=== PATIENT | female | born 1965 | race Caucasian/White ===

== ENCOUNTER 2024-05-15 19:58 | Emergency (ER) | payer OTHER, SELFPAY ==
[2024-05-15 20:07] VITALS: BP 127/77; PULSE 100; RESP 16; TEMP 37; O2SAT 96; BMI 24.2
--- NOTE | 2024-05-15 22:58 | ED_ITS ---
HPI - Skin/Abscess/Foreign Bdy General Chief complaint: Skin/Abscess/Foreign Body Stated complaint: poss spider bite Time Seen by Provider: 05/15/24 22:57 Source: patient, RN notes reviewed and old records reviewed Mode of arrival: Ambulatory Limitations: no limitations History of Present Illness HPI narrative: 59-year-old female history of psoriasis, patient presents with concern for spider bite today she states that she was camping on [facility] felt something bite her on the ankle developed red Pap patchy spots on her ankle which have progressed throughout the day. Patient states the night that she was bitten she felt feverish she threw up several times that has all abated. She has not had any persistent fevers no chest pain or shortness of breath no persistent nausea or vomiting. No other GI symptoms. States the redness started localized has spread but is sort of papules. She states it was very very warm particularly earlier today. Is not itchy has a little bit of painful. No drainage. Patient states she does have a history of psoriasis but stasis looks very different. She denies any drug allergies. She has not currently on any prescription medications. She does request a refill of her betamethasone 0.1% for her psoriasis she is traveling and run out. Former smoker, uses marijuana, no IV drugs reported. Related Data Previous Rx's Medication Instructions Recorded betamethasone valerate 0.1 % 1 applic topical DAILY PRN 05/15/24 topical cream Psoriasis #15 grams cephalexin 500 mg capsule 500 mg PO Q6H 7 days #28 caps 05/15/24 Allergies Allergy/AdvReac Type Severity Reaction Status Date / Time No Known Drug Allergies Allergy Verified 05/15/24 20:07 Review of Systems Review of Systems ROS Unobtainable: All systems reviewed & are unremarkable except as noted in HPI and below Patient History Social History Smoking Status: Former smoker Smoking Status: Former smoker Substance Use Type: marijuana Exam Narrative Exam Narrative: GENERAL: Alert and oriented x three, mild distress. HEENT: Head normocephalic, atraumatic, EOMI, pupils reactive, face symmetric, moist mucous membranes NECK: Supple, full range of motion CARDIOVASCULAR: Regular rate and rhythm without murmurs, rubs or gallops. RESPIRATORY: Breath sounds equal bilaterally, no wheezes rales or rhonchi. ABDOMEN: Soft, nontender. Normoactive bowel sounds all 4 quadrants. No guarding or rebound, rigidity, no mass EXTREMITIES: Normal range of motion, no clubbing. Neurovascularly intact. Patient has some mild edema and erythema with PAC she erythematous papules that ray spreading over an area of about 4.5 cm that is irregular, areas slightly warm to touch there is no abscess or fluid collection appreciated. NEUROLOGICAL: Cranial nerves II through XII grossly intact. Moving all extremities SKIN: Warm, dry, no petechiae, no other lesions, patient does have changes to the dorsum of her foot and hands on the palmar side with silver hyperkeratotic skin changes Initial Vital Signs Initial Vital Signs: Vital Signs Temperature 98.6 F 05/15/24 20:07 Pulse Rate 100 H 05/15/24 20:07 Respiratory Rate 16 05/15/24 20:07 Blood Pressure 127/77 05/15/24 20:07 Pulse Oximetry 96 05/15/24 20:07 Oxygen Delivery Method Room Air 05/15/24 20:07 Course Orders Ordered: Discontinued Medications Cephalexin HCl (Cephalexin 250 Mg Capsule) 500 mg PO NOW ONE Stop: 05/15/24 23:19 Last Admin: 05/15/24 23:27 Dose: 500 mg Documented By: WILLY Vital Signs Vital signs: Vital Signs - 8 hr 05/15/24 23:38 Temperature 97.9 F Pulse Rate 78 Respiratory Rate 18 Blood Pressure 144/71 H Pulse Oximetry 99 Oxygen Delivery Method Room Air MDM - Skin/Abscess/Foreign Bdy MDM Narrative Medical decision making narrative: 59-year-old female with appears to be rash possibly cellulitic it is little bit more patchy but is very warm to the touch, patient believes she may have been bitten by something. Has progressed over the last day so we will treat with oral antibiotic discussed return precautions. She is overall well-appearing here. She did request refill of her steroid cream and this was provided as well. Discharge Plan Departure Patient Disposition: Home Clinical Impression: Cellulitis of left lower extremity Instructions: DI for Cellulitis -- Adult Activity Restrictions/Additional Instructions: Take oral antibiotics until completed. Take about 24-48 hours for antibiotics to be fully effective. If you are not having any improvement of the next 72 hours you should have re-evaluation. Prescription was sent to [facility] in [place]. Prescription for your topical steroid cream for your psoriasis was also included. Please return for fevers, rapidly worsening redness, swelling, persistent vomiting, lightheadedness or passing out or other new or concerning changes. Prescriptions: New cephalexin 500 mg capsule 500 mg PO Q6H 7 Days Qty: 28 0RF betamethasone valerate 0.1 % cream 1 applic topical DAILY PRN (Reason: Psoriasis) Qty: 15 0RF Stand Alone Forms: Patient Portal/API
[2024-05-15] MEDS: cephALEXin 250 MG CAPSULE 500 MG PO (23:27)
[2024-05-15 23:38] VITALS: BP 144/71; PULSE 78; RESP 18; TEMP 36.6; O2SAT 99
== END 2024-05-15 23:35 | disposition home or self-care (01) ==
PROVIDERS: Emergency Provider Emergency Medicine
DX: L03.116 Cellulitis of left lower limb
CPT/HCPCS: 99283

== ENCOUNTER 2024-05-16 18:28 | Emergency (ER) | payer OTHER, SELFPAY ==
[2024-05-16 18:39] VITALS: BP 147/67; PULSE 91; RESP 16; TEMP 36.5; O2SAT 98; BMI 24.2
--- NOTE | 2024-05-16 18:52 | EKG_ITS ---
[facility] [address], [place] [address] Test Date: 2024-05-16 Pat Name: Bere Robins Department: [facility] Room: Gender: Female Telephone Repairer: : 1965 Requested By: Order Number: [id number] Reading MD: Felipe Dietz MD Measurements Intervals [place] Rate: 75 P: 64 NH: 132 QRS: -24 QRSD: 88 T: 17 QT: 374 QTc: 417 Interpretive Statements Normal sinus rhythm Electronically Signed On 05-17-2024 7:38:43 PDT by Felipe Dietz MD
[2024-05-16 19:30] VITALS: BP 132/82; PULSE 77; RESP 16; O2SAT 99
[2024-05-16] MEDS: SODIUM CHLORIDE 0.9% 1,000 ML 1000 ML IV (19:33)
[2024-05-16] MEDS: ONDANSETRON 4 MG/2 ML INJ IV ×2 (19:34→22:20)
[2024-05-16 19:38] LABS: Add Manual Diff / Slide Review NO; Basophils Absolute Auto 0 /uL (0-100); Basophils Percent Auto 0.2 % (0-2); Eosinophils Absolute Auto 0 /uL (0-450); Hematocrit 39.7 % (36-46); Hemoglobin 13.1 g/dL (12.0-16.0); Lymphocytes Absolute Auto 1000 /uL (1100-4500); Lymphocytes Percent Auto 6.1 % (25-40); Mean Corpuscular HGB Conc 32.9 % (30-36); Mean Corpuscular Hemoglobin 30.3 PG (26-34); Mean Corpuscular Volume 92.2 fL (80-100); Monocytes Absolute Auto 1100 /uL (0-900); Monocytes Percent Auto 6.7 % (3-14); Neutrophils Absolute Auto 14200 /uL (1500-7000); Platelet Count 311 X10^3/uL (150-400); Red Blood Cell Count 4.31 X10^6/uL (4.0-5.2); Red Cell Distribution Width 14.1 % (11.6-14.8); White Blood Cell Count 16.3 X10^3/uL (4.5-11.0)
[2024-05-16 19:50] LABS: Alanine Aminotransferase 17 IU/L (<35); Albumin Globulin Ratio 1.3 (1.0-2.8); Alkaline Phosphatase 67 U/L (38-126); Aspartate Aminotransferase 24 IU/L (14-36); BUN Creatinine Ratio 29.8 (6-22); Bilirubin Total 0.5 mg/dL (0.2-1.3); Blood Urea Nitrogen 14 mg/dL (7-17); Calcium 9.4 mg/dL (8.4-10.2); Carbon Dioxide 25 mmol/L (22-32); Chloride 108 mmol/L (98-107); Estimated Glomerular Filt Rate > 60 mL/min (>60); Globulin 3.2 g/dL (1.7-4.1); Glucose 118 mg/dL (80-110); HEMOLYSIS < 15 (0-50); Lipase 73 U/L (23-300); Potassium 3.9 mmol/L (3.4-5.1); Sodium 139 mmol/L (137-145); Total Protein 7.2 g/dL (6.3-8.2)
--- NOTE | 2024-05-16 20:51 | ED.NAVMDI ---
HPI - Nausea/Vomiting/Diarrhea General Chief complaint: Nausea/Vomiting/Diarrhea Stated complaint: vomiting, unable to keep anything down Time Seen by Provider: 05/16/24 20:30 Source: patient, RN notes reviewed and old records reviewed Mode of arrival: Ambulatory Limitations: no limitations History of Present Illness HPI Narrative: 59-year-old female with a history of psoriasis, was here last night with concern for spider bite and rash on her ankle she did note she had nausea and vomiting the day prior but no persistent symptoms and was started on oral antibiotic. Patient re-presented with complaint of nausea and vomiting since 5:00 a.m. this morning. Patient states she did have episodes of vomiting the day prior to being seen on the . Patient states no fevers but she has had chills. She states she has had persistent nausea and vomiting today. She denies any chest pain or shortness of breath. She states she had sounds like a syncopal episode where she sat up in bed after having been lying flat all day and passed out briefly. She denies any headache, she denies any back or flank pain. She states no abdominal pain but does have some tenderness on exam. No diarrhea but did have a bowel movement today which she states she has been constipated recently. Denies any dysuria urgency or frequency. Rash on her leg has progressed slightly. She has not been able to take any additional doses of antibiotics. No new rashes or skin changes that she appreciates. She has had some Pepto today. Patient is not on any oral medications regularly did get a prescription for betamethasone yesterday which she has used for her psoriasis. She states she has had prior hysterectomy denies any other abdominal surgeries. No known drug allergies. Related Data Previous Rx's Medication Instructions Recorded betamethasone valerate 0.1 % 1 applic topical DAILY PRN 05/15/24 topical cream Psoriasis #15 grams cephalexin 500 mg capsule 500 mg PO Q6H 7 days #28 caps 05/15/24 ondansetron 4 mg disintegrating 4 mg PO Q6H PRN nausea and 05/17/24 tablet vomiting #5 tabs Allergies Allergy/AdvReac Type Severity Reaction Status Date / Time No Known Drug Allergies Allergy Verified 05/15/24 20:07 Review of Systems Review of Systems ROS Unobtainable: All systems reviewed & are unremarkable except as noted in HPI and below Patient History Social History Smoking Status: Former smoker Smoking Status: Former smoker alcohol intake frequency: other Alcohol type: other Substance Use Type: marijuana Exam Narrative Exam Narrative: GEN: well nourished, female, alert and oriented x 3, patient appears to be in mild distress. HEENT: Atraumatic, pupils are equal round reactive to light, extraocular movements are intact, nares are clear, there is no conjunctival pallor. Throat is clear without any exudates, erythema, tonsillar enlargement or uvular deviation, patient has dry mucous membranes HEART: Regular rate and rhythm without murmur, clicks, rubs. pulses are equal in upper and lower extremities LUNGS:Lungs clear to auscultation, no wheezes, rales, crackles, chest moves symmetrically ABD:bowel sounds normal, soft, patient has some mild left-sided abdominal tenderness. More upper than lower., no guarding, rebound, rigidity, no masses noted, no hepatosplenomegaly :No CVA tenderness MSCL: Non-tender, no muscle atrophy, muscles strength 5/5 upper and lower extremities, full range of motion, normal gait NEURO:CN 2-12 intact, sensation normal SKIN: Warm, dry, no petechia no other lesions does have changes with the dorsum of the foot and hands consistent with silver hyperkeratotic skin changes on the palmar side of the hand. Patient's ankle has some mild erythema and edema with erythematous papules no vesicles overnight about 4.5 cm in comparison to last night possibly 5 cm that is irregular slightly warm to touch no abscess or fluid collection. Initial Vital Signs Initial Vital Signs: Vital Signs Temperature 97.7 F 05/16/24 18:39 Pulse Rate 91 H 05/16/24 18:39 Respiratory Rate 16 05/16/24 18:39 Blood Pressure 147/67 H 05/16/24 18:39 Pulse Oximetry 98 05/16/24 18:39 Oxygen Delivery Method Room Air 05/16/24 18:39 Course Orders Ordered: ED Orders 05/16/24 19:25 Complete Blood Count AUTO DIFF Stat Comprehensive Metabolic Panel Stat Lipase Stat Procalcitonin Stat Troponin & CK Cardiac Panel Stat 05/16/24 21:12 CT abdomen pelvis w con Stat 05/16/24 21:17 Urinalysis and Microscopic Stat 05/16/24 21:40 Blood Culture Stat 05/16/24 21:42 Lactate (Lactic Acid) Stat Discontinued Medications Sodium Chloride (Normal Saline 0.9%) 1,000 mls @ 1,000 mls/hr IV BOLUS ONE Stop: 05/16/24 19:52 Last Infusion: 05/16/24 20:33 Dose: Infused Documented By: Admin: 05/16/24 19:33 Dose: 1,000 mls/hr Documented By: QUEENIE Lactated Ringer's (Lactated Ringers) 1,000 mls @ 1,000 mls/hr IV BOLUS ONE Stop: 05/16/24 22:11 Last Infusion: 05/16/24 22:39 Dose: Infused Documented By: Admin: 05/16/24 21:39 Dose: 1,000 mls/hr Documented By: QUEENIE Acetaminophen (Ofirmev) 1,000 mg in 100 mls @ 400 mls/hr IV NOW ONE Stop: 05/16/24 21:26 Last Infusion: 05/16/24 21:54 Dose: Infused Documented By: Admin: 05/16/24 21:39 Dose: 400 mls/hr Documented By: QUEENIE Clindamycin Phosphate (Cleocin) 900 mg in 50 mls @ 50 mls/hr IV NOW ONE Stop: 05/16/24 23:03 Last Infusion: 05/16/24 23:20 Dose: Infused Documented By: Admin: 05/16/24 22:20 Dose: 50 mls/hr Documented By: QUEENIE Ondansetron HCl (Ondansetron 4 Mg/2 Ml Inj) 4 mg IV NOW PRN PRN Reason: Nausea And Vomiting Last Admin: 05/16/24 19:34 Dose: 4 mg Documented By: QUEENIE Ondansetron HCl (Ondansetron 4 Mg Odt) 4 mg PO NOW PRN PRN Reason: Nausea And Vomiting Last Admin: 05/17/24 02:09 Dose: 4 mg Documented By: QUEENIE Ondansetron HCl (Ondansetron 4 Mg/2 Ml Inj) 4 mg IV NOW ONE Stop: 05/16/24 22:08 Last Admin: 05/16/24 22:20 Dose: 4 mg Documented By: QUEENIE Ondansetron HCl (Ondansetron 4 Mg Odt Prepack) 1 bottle MISC DIRECTED ONE Stop: 05/17/24 01:53 Last Admin: 05/17/24 02:05 Dose: Not Given Documented By: QUEENIE Vital Signs Vital signs: Vital Signs - 8 hr 05/16/24 21:00 05/16/24 22:15 05/16/24 22:30 Pulse Rate 84 81 77 Respiratory Rate 16 16 16 Blood Pressure 166/56 H 132/58 L 129/60 Pulse Oximetry 95 97 98 Oxygen Delivery Method Room Air Room Air Room Air 05/17/24 00:00 05/17/24 00:30 05/17/24 01:00 Pulse Rate 78 81 78 Respiratory Rate 18 16 24 Blood Pressure 114/56 L 139/70 135/60 Pulse Oximetry 96 99 97 Oxygen Delivery Method Room Air Room Air Room Air 05/17/24 01:45 Pulse Rate 74 Respiratory Rate 16 Blood Pressure 137/64 Pulse Oximetry 97 Oxygen Delivery Method Room Air MDM - Nausea/Vomiting/Diarrhea Lab Data 05/16/24 19:25 05/16/24 19:25 Labs: Lab Results 05/16/24 05/16/24 05/16/24 Range/Units 19:25 21:17 21:42 WBC 16.3 H (4.5-11.0) X10^3/uL RBC 4.31 (4.0-5.2) X10^6/uL Hgb 13.1 (12.0-16.0) g/dL Hct 39.7 (36-46) % MCV 92.2 (80-100) fL MCH 30.3 (26-34) PG MCHC 32.9 (30-36) % RDW 14.1 (11.6-14.8) % Plt Count 311 (150-400) X10^3/uL Neut % (Auto) 87.0 H (50-75) % Lymph % (Auto) 6.1 L (25-40) % Ramsey % (Auto) 6.7 (3-14) % Eos % (Auto) 0.0 L (2-4) % Baso % (Auto) 0.2 (0-2) % Neut # (Auto) 34516 H (2153-6094) /uL Lymph # (Auto) 1000 L (1008-7555) /uL Ramsey # (Auto) 1100 H (0-900) /uL Eos # (Auto) 0 (0-450) /uL Baso # (Auto) 0 (0-100) /uL Sodium 139 (137-145) mmol/L Potassium 3.9 (3.4-5.1) mmol/L Chloride 108 H (98-107) mmol/L Carbon Dioxide 25 (22-32) mmol/L BUN 14 (7-17) mg/dL Creatinine 0.47 L (0.52-1.04) mg/dL Estimated GFR > 60 (>60) mL/min BUN/Creatinine Ratio 29.8 H (6-22) Glucose 118 H (80-110) mg/dL Lactate 1.1 (0.7-2.1) mmol/L Calcium 9.4 (8.4-10.2) mg/dL Total Bilirubin 0.5 (0.2-1.3) mg/dL AST 24 (14-36) IU/L ALT 17 (<35) IU/L Alkaline Phosphatase 67 (38-126) U/L Total Creatine Kinase 48 (30-135) U/L Troponin I < 0.012 (0.01-0.034) ng/mL Total Protein 7.2 (6.3-8.2) g/dL Albumin 4.0 (3.5-5.0) g/dL Globulin 3.2 (1.7-4.1) g/dL Albumin/Globulin Ratio 1.3 (1.0-2.8) Lipase 73 (23-300) U/L Procalcitonin 0.069 (<0.5) ng/mL Urine Color Yellow Urine Appearance Clear Urine pH 5.5 (4.5-8.0) Ur Specific Portal >=1.030 H (1.000-1.035) Urine Protein Trace H (Negative) Urine Glucose (UA) Negative (Negative) g/dL Urine Ketones 2+ H (NEGATIVE) Urine Occult Blood 2+ H (Negative) Urine Nitrate Negative (Negative) Urine Bilirubin Negative (NEGATIVE) Urine Urobilinogen 1.0 (0.2) E.U./dL Ur Leukocyte Esterase Negative (NEGATIVE) Urine RBC 1-5/hpf (0-5/HPF) Urine WBC 0-1/hpf (0-5/HPF) Ur Squamous Epith Cells 0-1 /hpf (0-5/HPF) Urine Bacteria Few (2-10) H (None) Urine Mucus 3+ H (Negative) Ur Culture Indicated? Cult not indicated Vol Urine Centrifuged 10ml (spun) Urine Dip Bedside Urine Glucose Negative Bedside Urine Bilirubin - Negative Bedside Urine Ketone +++ 80 Urine Specific Portal 1.030 Bedside Urine Occult Blood ++ Bedside Urine pH 5.5 Bedside Urine Protein + 30 Bedside Urine Urobilinogen - Negative Bedside Urine Nitrite - Negative Bedside Urine Leukocytes - Negative Esterase Imaging Data CT scan - abdomen/pelvis: Radiologist's Impression: Close Abdomen/Pelvis CT (Signed) Octaviano Yates - 05/16/24 Launch?[address] [address] [address] Scan Report Signed Patient: Bere Robins MR#: [id number] : 1965 Acct:[id number] Age/Sex: 59 / F Date of Service: 05/16/24 Loc: ED Accession Number: [id number] Procedure: CT abdomen pelvis w con Ordering Provider: Jil Frances D.O. PROCEDURE: CT ABDOMEN PELVIS W CON INDICATIONS: vomiting, recent rash, L abd pain TECHNIQUE: After the administration of intravenous contrast, axial sections acquired from the lung bases to the pubic symphysis. Coronal and sagittal reformats were performed. For radiation dose reduction, the following was used: automated exposure control, adjustment of mA and/or kV according to patient size. COMPARISON: None. FINDINGS: Image quality: Diagnostic. Lower Chest: No significant findings. ABDOMEN: Liver: No solid mass. Hepatomegaly with edge blunting. Gallbladder: No radiopaque gallstones or wall thickening. Biliary ducts: No biliary dilation. Pancreas: No ductal dilation. Spleen: Size is within normal limits. Adrenal Glands: No adrenal nodules. Kidneys and Ureters: No hydronephrosis. No solid mass. No complex renal cystic lesion which requires follow up. Single, punctate, nonobstructing right-sided nephrolithiasis Stomach and Bowel: Normal colonic caliber, without significant wall thickening. . Colonic diverticulosis without evidence of diverticulitis. Peritoneum: No abnormal intraperitoneal fluid. No free air. Ventral Wall: No significant ventral hernia. Abdominal Nodes: No retroperitoneal or mesenteric adenopathy by size criteria. Vessels: Aorta and inferior vena cava are normal in size. PELVIS: Pelvic Organs: Unremarkable. Bladder: No bladder wall thickening, accounting for underdistention. Pelvic Nodes: No enlarged lymph nodes. Miscellaneous: No inguinal hernias are seen. Bones: No aggressive osseous abnormality. IMPRESSION: No findings to explain the patient's left abdominal pain. Colonic diverticulosis without evidence of diverticulitis. No nephrolithiasis. Dictated by: Octaviano Yates M.D. on 05/16/2024 at 21:54 Approved by: Octaviano Yates M.D. on 05/16/2024 at 21:57 ECG Data Attestation: I personally reviewed and interpreted this ECG as follows: Prior ECG tracings: not available for review Interpretation: Sinus rhythm rate of 75 HI 132 QRS 88 QTC of 417, no acute ST changes. No priors for comparison. MDM Narrative Medical decision making narrative: 59-year-old female was seen here yesterday for cellulitis on her lower extremity. On evaluation of patient she has had vomiting possibility could be related to antibiotic but she had it 2 days before but not day before she started the antibiotic. Patient has a little bit of a white count she has been afebrile, some mild pain on abdominal exam. Labs were reviewed no signs of sepsis patient is feeling much improved CT shows no acute clear cause. White count is 16.3 hemoglobin of 13 platelets of 311, patient has predominance of neutrophils. Electrolytes are appropriate chloride 108 CO2 is 25 BUN 14 creatinine 0.47 glucose is 118 calcium 9.4 LFTs are negative lipase is 73. Lactate, 1.1. Troponin troponins less than 0.012. Procalcitonin 0.069. UA shows trace protein, ketones, 2+ blood, few bacteria, 3+ mucus. EKG shows sinus rhythm. CT abdomen pelvis shows no acute change colonic diverticulosis without evidence of diverticulitis. No evidence of nephrolithiasis. Patient has single punctate nonobstructing right-sided nephrolithiasis Patient received fluids, Zofran is feeling little bit improved actually patient was ambulating back from the bathroom when I went to see her. Received additional L of fluids and some Tylenol. Tylenol, additional L of fluids. She has been tolerating orals here in the department she feels much better. Her rash actually appears improved as she has been here in the department without any other medication interventions. Patient had episodes of vomiting before the cephalexin so seems unlikely to be allergic reaction or adverse event she has not had any other changes that is seem consistent with a allergic reaction. After discussion about continuing your changing antibiotic as it seems to be improving her rash we will continue with cephalexin but give a short term prepack of Zofran. Did discuss observation overnight with the patient. After discussion patient elects to be discharged. Discharge Plan Departure Patient Disposition: Home Clinical Impression: Cellulitis of left lower extremity, Vomiting Instructions: DI for Vomiting -- Adult Activity Restrictions/Additional Instructions: Follow-up for recheck in the next 24-48 hours if you are still feeling unwell. If needed you can return to the emergency department. Can take Zofran 1 tablet every 6 hours as needed for nausea. Continue your oral antibiotic. It appears to be improving your rash. If you are having persistent fevers, new abdominal back or flank pain, persistent vomiting, black or bloody stools, increasing or spreading rash, redness or pain in her leg or other new or concerning changes please return. Prescriptions: New ondansetron 4 mg tablet,disintegrating 4 mg PO Q6H PRN (Reason: nausea and vomiting) Qty: 5 0RF No Action cephalexin 500 mg capsule 500 mg PO Q6H 7 Days Qty: 28 0RF betamethasone valerate 0.1 % cream 1 applic topical DAILY PRN (Reason: Psoriasis) Qty: 15 0RF Stand Alone Forms: Patient Portal/API
[2024-05-16 21:00] VITALS: BP 166/56; PULSE 84; RESP 16; O2SAT 95
--- NOTE | 2024-05-16 21:12 | DI.CT.S_ITS ---
PROCEDURE: CT ABDOMEN PELVIS W CON INDICATIONS: vomiting, recent rash, L abd pain TECHNIQUE: After the administration of intravenous contrast, axial sections acquired from the lung bases to the pubic symphysis. Coronal and sagittal reformats were performed. For radiation dose reduction, the following was used: automated exposure control, adjustment of mA and/or kV according to patient size. COMPARISON: None. FINDINGS: Image quality: Diagnostic. Lower Chest: No significant findings. ABDOMEN: Liver: No solid mass. Hepatomegaly with edge blunting. Gallbladder: No radiopaque gallstones or wall thickening. Biliary ducts: No biliary dilation. Pancreas: No ductal dilation. Spleen: Size is within normal limits. Adrenal Glands: No adrenal nodules. Kidneys and Ureters: No hydronephrosis. No solid mass. No complex renal cystic lesion which requires follow up. Single, punctate, nonobstructing right-sided nephrolithiasis Stomach and Bowel: Normal colonic caliber, without significant wall thickening. . Colonic diverticulosis without evidence of diverticulitis. Peritoneum: No abnormal intraperitoneal fluid. No free air. Ventral Wall: No significant ventral hernia. Abdominal Nodes: No retroperitoneal or mesenteric adenopathy by size criteria. Vessels: Aorta and inferior vena cava are normal in size. PELVIS: Pelvic Organs: Unremarkable. Bladder: No bladder wall thickening, accounting for underdistention. Pelvic Nodes: No enlarged lymph nodes. Miscellaneous: No inguinal hernias are seen. Bones: No aggressive osseous abnormality. IMPRESSION: No findings to explain the patient's left abdominal pain. Colonic diverticulosis without evidence of diverticulitis. No nephrolithiasis. Dictated by: Octaviano Yates M.D. on 05/16/2024 at 21:54 Approved by: Octaviano Yates M.D. on 05/16/2024 at 21:57
[2024-05-16 21:30] LABS: Appearance Urine UA CLEAR; Bilirubin Urine UA NEGATIVE (NEGATIVE); Color Urine UA YELLOW; Glucose Urine UA NEGATIVE (Negative); Ketones Urine UA 2+ (NEGATIVE); Leukocyte Esterase Urine UA NEGATIVE (NEGATIVE); Nitrite Urine UA NEGATIVE (Negative); Occult Blood Urine UA 2+ (Negative); Protein Urine UA TRACE (Negative); Specific Gravity Urine UA >=1.030 (1.000-1.035)
[2024-05-16 21:35] LABS: pH Urine UA 5.5 (4.5-8.0)
[2024-05-16 21:36] LABS: Urine Volume 10mL (spun)
[2024-05-16 21:38] LABS: Bacteria Urine Few (2-10); Culture Indicated Urine Cult Not Indicated; Mucus Urine 3+ (Negative); RBC Urine 1-5/HPF (0-5/HPF); Squamous Epithelial Cell Urine 0-1 /HPF (0-5/HPF); WBC Urine 0-1/HPF (0-5/HPF)
[2024-05-16] MEDS: ACETAMINOPHEN IV 1,000 MG/100 ML VIAL 400 MG IV (21:39)
[2024-05-16] MEDS: LACTATED RINGERS 1,000 ML 1000 ML IV (21:39)
[2024-05-16 21:48] LABS: Creatine Kinase 48 U/L (30-135)
[2024-05-16 22:01] LABS: Troponin I < 0.012 ng/mL (0.01-0.034)
[2024-05-16 22:05] LABS: Procalcitonin 0.069 ng/mL (<0.5)
[2024-05-16 22:15] VITALS: BP 132/58; PULSE 81; RESP 16; O2SAT 97
[2024-05-16] MEDS: CLINDAMYCIN 900 MG/50 ML PIGGYBACK 50 MG IV (22:20)
[2024-05-16 22:23] LABS: Lactate (Lactic Acid) 1.1 mmol/L (0.7-2.1)
[2024-05-16 22:30] VITALS: BP 129/60; PULSE 77; RESP 16; O2SAT 98
[2024-05-17] VITALS: BP 114/56; PULSE 78; RESP 18; O2SAT 96
[2024-05-17 00:30] VITALS: BP 139/70; PULSE 81; RESP 16; O2SAT 99
[2024-05-17 01:00] VITALS: BP 135/60; PULSE 78; RESP 24; O2SAT 97
[2024-05-17 01:45] VITALS: BP 137/64; PULSE 74; RESP 16; O2SAT 97
[2024-05-17] MEDS: ONDANSETRON 4 MG ODT PO (02:09)
== END 2024-05-17 02:13 | disposition home or self-care (01) ==
PROVIDERS: Emergency Provider Emergency Medicine
DX: L03.116 Cellulitis of left lower limb (principal); R11.2 Nausea with vomiting, unspecified; R10.9 Unspecified abdominal pain
CPT/HCPCS: 74177; 80053; 81001; 81003; 82550; 83605; 83690; 84145; 84484; 85025; 87040; 93005; 93010; 96361; 96365; 96375; 96376; 99284; J0136; J2405; Q9967